=== PATIENT | male | born 1950 | race African-American/Black ===

== ENCOUNTER 2019-10-16 08:13 | Emergency (ER) | payer MEDICARE ==
[~2019-10-16] VITALS: Ht 182.9 cm; Wt 63.0 kg
[2019-10-16] MEDS ORDERED: ACETAMINOPHEN 650MG SUPP PR STA (08:42)
[2019-10-16] MEDS ORDERED: VANCOMYCIN 1 G PREMIX 200 ML IV ONE (08:45)
[2019-10-16] MEDS ORDERED: SODIUM CHLORIDE 0.9% 1000ML BAG (SEPSIS BOLUS) IV ONE (08:45)
[2019-10-16] MEDS ORDERED: PIPERACILLIN/TAZ 3.375G PREMIX 50 ML IV ONE (08:45)
[2019-10-16 09:33] LABS: HEMATOCRIT. 39.1 % (42.0-52.0); HEMOGLOBIN. 13.2 g/dL (14.0-18.0); MEAN CORPUSCULAR HEMOGLOBIN 30.8 pg (28.0-32.0); MEAN CORPUSCULAR VOLUME 90.9 fL (80.0-94.0); RED BLOOD CELL COUNT 4.29 mill/uL (4.7-6.1); RED CELL DISTRIBUTION WIDTH 14.7 % (11.6-14.6)
[2019-10-16 09:39] LABS: CHLORIDE 110 mEq/L (98-107)
[2019-10-16 09:43] LABS: INR 1.3; PROTHROMBIN TIME 13.5 sec (9.6-11.0)
[2019-10-16] MEDS ORDERED: POTASSIUM CHLORIDE INJ 40 MEQ in DEXT 5% WATER 250 ML IV ONE (10:15)
[2019-10-16] MEDS ORDERED: POTASSIUM CHLORIDE INJ 30 MEQ in DEXT 5%/0.9% NACL 1,000 ML IV ONE (10:15)
[2019-10-16 10:19] LABS: PLATELET ESTIMATE NORMAL
[2019-10-16 10:20] LABS: MEAN PLATELET VOLUME 8.2 fl (7.4-10.4); PLATELET 133 x1000/uL (130-400)
[2019-10-16 10:31] VITALS: BP 95/60
== END 2019-10-16 10:30 | disposition left against medical advice (07) ==
LOC: ER 08:26 → EDBD 08:26 → ER 10:30
DX: A41.9 Sepsis, unspecified organism (principal); G93.49 Other encephalopathy; E87.6 Hypokalemia; I11.9 Hypertensive heart disease without heart failure; Z98.61 Coronary angioplasty status
CPT/HCPCS: 36415; 71045; 80053; 82962; 83605; 84484; 85025; 85610; 87040; 87077; 87186; 93005; 99285; J3480; J7030; J7042; J7060; J2543; J3370